=== PATIENT | male | born 1975 | race Asian ===

== ENCOUNTER 2019-10-14 11:10 | Emergency (ER) | payer SELFPAY ==
--- NOTE | 2019-10-14 11:19 | ED.BACK ---
HPI - Back Pain/Injury General Chief Complaint: Back Pain/Injury Stated Complaint: back pain Time Seen by Provider: 10/14/19 11:25 Source: patient and RN notes reviewed Mode of arrival: ambulatory Limitations: no limitations History of Present Illness MD elicited complaint: back pain Onset (ago): day(s) (5) Timing: intermittent Severity: moderate Similar Symptoms Previously: No Quality: dull, aching and spasming Location: lumbar spine Radiation: none Exacerbating factors: movement Relieving factors: movement Context: while lifting Associated symptoms: denies other symptoms Treatments prior to arrival: NSAIDS Work related injury: Yes Related Data Allergies Allergy/AdvReac Type Severity Reaction Status Date / Time No Known Allergies Allergy Verified 10/14/19 11:36 Review of Systems Review of Systems: All systems reviewed & are unremarkable except as noted in HPI and below PMFSH Past Medical History Medical History (Updated 10/14/19 @ 11:48 by Rosalio Chavis MD) No active medical problems Perforated ulcer Surgical History Surgical History (Updated 10/14/19 @ 11:45 by Rosalio Chavis MD) H/O abdominal surgery Social History Social History (Updated 10/14/19 @ 11:46 by Rosalio Chavis MD) Smoking packs per day: 0.5 Smoking cigarettes per day: 10.0 Smoking status: Current every day smoker Tobacco type: cigarettes Alcohol intake: current Alcohol use details: occasional Substance use: never Exam Const: General: healthy appearing, no acute distress and alert Nutritional Appearance: well nourished Orientation/consciousness: patient oriented x3 HENMT: Head: normal to inspection Ears: external ears normal General nose exam: Normal external nose present Face and sinus: normal facial exam Eyes: Conjunctivae: conjunctivae normal Pupils: Equal, round and reactive pupils present EOM: EOMs intact bilaterally Neck: Neck: normal visual inspection Resp: Effort & Inspection: normal respiratory effort Auscultation: clear to auscultation bilaterally Cardio: Rate: regular rate Rhythm: regular rhythm Heart sounds: no murmurs GI: Auscultation: normal bowel sounds Skin: General skin exam: normal color Neuro: General: patient oriented x3, moves all extremities and no focal motor deficits Speech: normal speech Extrem: General: normal to inspection and no pedal edema Psych: Appearance: grossly normal and well kempt Mental Status: mental status grossly normal Affect: normal affect Attitude: cooperative Thought content: Yes Normal thought content present Course Vital Signs Vital signs: Vital Signs Temperature 36.6 C 10/14/19 11:38 Pulse Rate 89 10/14/19 11:38 Respiratory Rate 16 10/14/19 11:38 Blood Pressure 130/76 10/14/19 11:38 Pulse Oximetry 100 10/14/19 11:38 Temperature 36.6 C 10/14/19 11:38 Pulse Rate 89 10/14/19 11:38 Respiratory Rate 16 10/14/19 11:38 Blood Pressure 130/76 10/14/19 11:38 Pulse Oximetry 100 10/14/19 11:38 MDM - Back Pain/Injury Differential Diagnosis Differential diagnosis: Likely lumbar radiculopathy, sciatica and strain of lumbar region Discharge Plan Discharge Clinical Impression: Strain of lumbar region Qualifiers: Encounter type: initial encounter Qualified Code(s): S39.012A - Strain of muscle, fascia and tendon of lower back, initial encounter Patient Disposition: Home, Self-Care Condition: Stable Instructions: Acute Low Back Pain (ED) Additional Instructions: use Tylenol or Motrin [id number]. Follow up with primary care physician if not improved. Lumbar strain may not resolve for 3-6 weeks. Prescriptions: New cyclobenzaprine 10 mg tablet 10 mg PO TID PRN (Reason: muscle spasm) Qty: 30 RF: 0 Follow-up/Referrals: PHYSICIAN NOT ON STAFF,NONSTAFF [Primary Care Provider] - Time of Disposition: 11:47
[2019-10-14 11:38] VITALS: BP 130/76; PULSE 89; RESP 16; TEMP 36.6; O2SAT 100
[2019-10-14] MEDS: KETOROLAC (*BKC) 60 MG/2 ML VIAL IM (11:47)
[2019-10-14 11:52] VITALS: RESP 16
== END 2019-10-14 11:54 | disposition home or self-care (01) ==
PROVIDERS: Emergency Provider Emergency Medicine
DX: S39.012A Strain of muscle, fascia and tendon of lower back, initial encounter (principal); X50.9XXA Other and unspecified overexertion or strenuous movements or postures, initial encounter
CPT/HCPCS: 96372; 99283; J1885